=== PATIENT | female | born 1950 | race Caucasian/White ===

== ENCOUNTER 2017-02-03 10:51 | Emergency (ER) | payer BC ==
[~2017-02-03] VITALS: Ht 144.8 cm; Wt 63.5 kg
[2017-02-03 11:07] VITALS: BP 121/75
[2017-02-03] MEDS ORDERED: IBUPROFEN400 M1 PO (11:40)
--- NOTE | 2017-02-03 11:45 | Diagnostic Imaging Report ---
Indication: Right hand pain Technique: XRAY HAND MIN 3V RIGHT Comparison: None Findings: There is no acute fracture or dislocation. There is a rounded metallic density that projects over the ulnar aspect of the wrist. A bracelet is also noted obscuring a portion of the distal forearm. Impression: No acute osseous abnormality. Rounded radiopaque density projecting over the ulnar aspect of the wrist and clinical correlation recommended. Overlying bracelet obscuring the distal forearm.
[2017-02-03 12:01] VITALS: BP 121/75
--- NOTE | 2017-02-04 08:53 | Emergency Room Report ---
History of Present Illness General Chief Complaint: Skin Rash/Abscess Source: Patient Present Illness HPI Patient 66-year-old female who presented after increased pain to her hand. The substance present for several weeks. Patient reported having initial injury where she fell while on a boat. The patient reports injuring her hand on a stair and having initial laceration. The patient had subsequently seen a dog day care attendant after the wound appear to be somewhat infected. The patient had been taking oral antibiotics. Approximately one week later she stated that she had seen at urgent care and had incision performed without apparent purulent material. As reports having increased pain with movement Allergies: Coded Allergies: No Known Allergies (Unverified , 02/03/17) Patient History Past Medical History: see triage record Reviewed Nursing Documentation: PMH: Agreed, PSxH: Agreed Nursing Documentation-PMH Past Medical History: No History, Except For Hx Hypertension: Yes Hx Diabetes: Yes Review of Systems All Other Systems: negative except mentioned in HPI Physical Exam Vital Signs Date Time Temp Pulse Resp B/P (MAP) Pulse Ox O2 Delivery O2 Flow Rate FiO2 02/03/17 10:56 97.5 67 20 118/72 98 Room Air Sp02 EP Interpretation: reviewed, normal General Appearance: normal inspection, well appearing, no apparent distress, alert, GCS 15, non-toxic Head: atraumatic ENT: normal ENT inspection, hearing grossly normal, normal voice Neck: normal inspection, full range of motion, supple, no bony tend Respiratory: normal inspection, lungs clear, normal breath sounds, no respiratory distress, no retraction, no wheezing Cardiovascular #1: regular rate, rhythm, no edema Gastrointestinal: normal inspection, normal bowel sounds, non tender, soft, no guarding, no hernia Genitourinary: no CVA tenderness Musculoskeletal: normal inspection, back normal, normal range of motion, swelling - swelling, firm sclerotic area to area near hypothenar eminence, minimal erythema, no warmth. Neurologic: normal inspection, alert, oriented x3, responsive, abstracter III-XII nml as tested, speech normal Psychiatric: normal inspection, judgement/insight normal, mood/affect normal Skin: no rash, other - firm area near hypothenar eminence with callous Medical Decision Making Diagnostic Impression: Primary Impression: Foreign body (FB) in soft tissue ER Course The patient presented for hand pain. Differential diagnosis included was not limited to fracture, foreign body, abscess, ganglion cyst among others. X-ray imaging of the hand 3 views interpreted by me showed a foreign body in the soft tissue. The patient is advised that she would need followup with hand surgeon for removal of foreign body. The patient does not appear to require antibiotics at this time Last Vital Signs Date Time Temp Pulse Resp B/P (MAP) Pulse Ox O2 Delivery O2 Flow Rate FiO2 02/03/17 12:01 97.4 71 19 121/75 99 Room Air Status: unchanged Disposition: HOME, SELF-CARE Condition: Stable Scripts Ibuprofen (Ibuprofen) 400 Mg Tablet 400 MG PO Q8HR for Pain Scale (3-5), #30 TAB Prov: Dev Toney 02/03/17 Referrals: [facility],REFERRING (PCP) Patient Instructions: Hand Contusion Additional Instructions: Follow up with hand specialist for foreign body removal. Dev Toney Feb 04, 2017 08:53
== END 2017-02-03 12:02 | disposition home or self-care (01) ==
LOC: EMR 11:11
DX: M79.5 Residual foreign body in soft tissue (principal); I10 Essential (primary) hypertension; E11.9 Type 2 diabetes mellitus without complications
CPT/HCPCS: 99283